=== PATIENT | female | born 1950 ===

== ENCOUNTER 2017-12-18 10:49 | Outpatient (CLI) | payer OTHER | END 2017-12-18 15:07 | disposition home or self-care (01) | LOC: MAMO-SONO 10:49 | DX: Z12.31 Encounter for screening mammogram for malignant neoplasm of breast (principal); Z87.898 Personal history of other specified conditions; N60.11 Diffuse cystic mastopathy of right breast; N60.12 Diffuse cystic mastopathy of left breast ==

== ENCOUNTER 2019-02-25 08:51 | Outpatient (CLI) | payer OTHER | END 2019-02-25 08:54 | disposition home or self-care (01) | LOC: MAMO-SONO 08:51 | DX: N64.89 Other specified disorders of breast (principal); Z12.31 Encounter for screening mammogram for malignant neoplasm of breast; Z87.898 Personal history of other specified conditions ==

== ENCOUNTER 2020-10-06 13:35 | Outpatient (CLI) | payer OTHER | END 2020-10-06 14:14 | disposition home or self-care (01) | LOC: MAMO-SONO 13:35 | DX: Z12.31 Encounter for screening mammogram for malignant neoplasm of breast (principal); Z87.898 Personal history of other specified conditions; N60.21 Fibroadenosis of right breast; N60.22 Fibroadenosis of left breast ==

== ENCOUNTER 2022-07-19 08:51 | Outpatient (CLI) | payer OTHER | END 2022-07-19 09:00 | disposition home or self-care (01) | LOC: MAMO-SONO 08:51 | PROVIDERS: ATTEND Internal Medicine | DX: N64.4 Mastodynia (principal) ==

== ENCOUNTER 2024-04-19 08:40 | Outpatient (CLI) | payer OTHER | END 2024-04-19 08:47 | disposition home or self-care (01) | LOC: MAMO-SONO 08:40 | PROVIDERS: ATTEND Internal Medicine | DX: Z12.31 Encounter for screening mammogram for malignant neoplasm of breast (principal); R92.333 Mammographic heterogeneous density, bilateral breasts ==